=== PATIENT | male | born 1995 | race Two or more races ===

== ENCOUNTER 2025-05-09 01:11 | Emergency (ER) | payer OTHER ==
[~2025-05-09] VITALS: Ht 182.9 cm; Wt 90.7 kg
[2025-05-09 01:18] VITALS: BP 144/70; TEMP 98.5; O2SAT 95
[2025-05-09] MEDS ORDERED: TRAMADOL HCL 50 MG TABLET ONE (01:29)
[2025-05-09] MEDS ORDERED: KETOROLAC TROMETHAMINE INJ 30 MG/ML VIAL ONE (01:30)
[2025-05-09] MEDS: TRAMADOL HCL 50 MG TABLET PO ONE (01:34)
[2025-05-09] MEDS: KETOROLAC TROMETHAMINE INJ 30 MG/ML VIAL IM ONE (01:34)
== END 2025-05-09 05:44 | disposition home or self-care (01) ==
LOC: ER 01:19
DX: S81.812A Laceration without foreign body, left lower leg, initial encounter (principal); S81.832A Puncture wound without foreign body, left lower leg, initial encounter; Z60.2 Problems related to living alone; V00.131A Fall from skateboard, initial encounter; Y93.51 Activity, roller skating (inline) and skateboarding; Y92.89 Other specified places as the place of occurrence of the external cause; Y99.8 Other external cause status
CPT/HCPCS: 99283; 96372; 73590; J1885